=== PATIENT | female | born 1930 | race Caucasian/White ===

== ENCOUNTER 2020-12-19 10:31 | Day surgery (SDC) | payer MEDICARE, OTHER ==
[~2020-12-19 10:31] MED LIST: Lactated Ringers 1,000 ML IV SCH; Propofol 200 MG/20 ML SDV ONE; Sodium Chloride 0.9% 10 ML Syringe FLUSH PRN
--- NOTE | 2020-12-19 12:08 | PCM.PN ---
- General Info Date of Service: 12/19/20 - Review of Systems Systems Review Comment:: 89-year-old female referred for EGD. She has been having some symptoms of dysphagia and chest discomfort. She does take a PPI agent regularly. She is medically stable to proceed today. Her recent history and physical is reviewed and no significant changes are noted. I have discussed the proposed EGD with the patient. She agrees to proceed accepting risks. - Patient Data Vitals - Most Recent: Last Vital Signs Temp 97.9 F 12/19/20 11:30 Pulse 55 L 12/19/20 11:30 Resp 18 12/19/20 11:30 BP 162/81 H 12/19/20 11:30 Pulse Ox 98 12/19/20 11:30 Weight - Most Recent: 51.71 kg Med Orders - Current: Current Medications Lactated Ringer's (Ringers, Lactated) 1,000 mls @ 125 mls/hr IV ASDIRECTED ALONA Last Admin: 12/19/20 11:30 Dose: 125 mls/hr Documented by: Sodium Chloride (Sodium Chloride 0.9% 10 Ml Syringe) 10 ml FLUSH ASDIRECTED PRN PRN Reason: Keep Vein Open Discontinued Medications Propofol (Propofol 200 Mg/20 Ml Sdv) Confirm Administered Dose 200 mg .ROUTE .STK-MED ONE Stop: 12/19/20 08:24 Sepsis Event Note - Focused Exam Vital Signs: Vital Signs Temp Pulse Resp BP Pulse Ox 12/19/20 11:30 97.9 F 55 L 18 162/81 H 98 - Problem List Review Problem List Initiated/Reviewed/Updated: Yes - Assessment Assessment:: Dysphagia - Plan Plan:: EGD
[2020-12-19] MEDS ORDERED: Propofol 200 MG/20 ML SDV ONE (12:15)
--- NOTE | 2020-12-19 12:51 | PCM.OPNOTE ---
- General Post-Op/Procedure Note Date of Surgery/Procedure: 12/19/20 Operative Procedure(s): EGD with Balloon Dilation of Esophagus and Biopsy Findings: Distal Esophageal Stricture small hiatal hernia Pre Op Diagnosis: Dysphagia Post-Op Diagnosis: Esophageal stricture. Hiatal Hernia Anesthesia Technique: MAC Primary Surgeon: Tl Mckinnon Pathology: Biopsies of Gastric Antrum and GE Jct EBL in mLs: 3 Complications: None Condition: Good
--- NOTE | 2020-12-19 13:42 | OR ---
Date of Procedure: 12/19/2020 PREOPERATIVE DIAGNOSIS: Dysphagia. POSTOPERATIVE DIAGNOSES: Distal esophageal stricture and hiatal hernia. OPERATION PERFORMED: Esophagogastroduodenoscopy with biopsy and esophageal balloon dilation. INDICATIONS FOR SURGERY: This 89-year-old female has been noticing some difficulty with swallowing as well as chest discomfort. She was referred for EGD. FINDINGS: The patient has a small hiatal hernia, and right at the GE junction approximately 36 cm from the incisors, there is a single moderate stricture. No evidence of intrinsic or extrinsic mass is noted. The stricture is very limited to just the GE junction. The remainder of the esophagus, stomach, and duodenum appeared normal. DESCRIPTION OF PROCEDURE: The patient was taken to the operating room. She was given intravenous sedation, and with her in the left lateral decubitus position, the Olympus gastroscope was advanced through a mouth guard into the oral cavity. Under direct visualization, the scope was advanced down through the hypopharynx into the esophagus and then down through the esophagus past the stricture which was able to be cannulated before dilation and then passed through the stomach and into the duodenum, where examination to the third portion was performed. The duodenum was carefully examined, and then, scope was withdrawn back into the stomach where full examination including retroflexed examination of the fundus was performed. Because of the patient's symptoms and the presence of a stricture, balloon dilation of the distal esophageal stricture was then performed. This was carried out using an 18 mm balloon progressing to 54-Bengali dilation. No evidence of complication was noted with this procedure. Random biopsies were also taken of the antrum as well as the GE junction during the procedure. After the stomach had been thoroughly examined and biopsy and dilation had been completed, the scope was then withdrawn re-examining the esophagus and the scope was then removed. The patient was then awakened and taken from the operating room in satisfactory condition. ESTIMATED BLOOD LOSS: 3 mL. COMPLICATIONS: None. PROGNOSIS: Good. OBINNA Mckinnon MD /[id number]
== END 2020-12-19 13:57 | disposition home or self-care (01) ==
LOC: LL.SDS 10:31
PROVIDERS: ATTEND Surgery
DX: K22.2 Esophageal obstruction (principal); K29.50 Unspecified chronic gastritis without bleeding; K31.89 Other diseases of stomach and duodenum; K20.0 Eosinophilic esophagitis; K44.9 Diaphragmatic hernia without obstruction or gangrene; M81.0 Age-related osteoporosis without current pathological fracture; K21.9 Gastro-esophageal reflux disease without esophagitis; G62.9 Polyneuropathy, unspecified; C64.1 Malignant neoplasm of right kidney, except renal pelvis; Z88.8 Allergy status to other drugs, medicaments and biological substances; Z79.899 Other long term (current) drug therapy; Z90.49 Acquired absence of other specified parts of digestive tract; Z98.890 Other specified postprocedural states; Z20.828 Contact with and (suspected) exposure to other viral communicable diseases
CPT/HCPCS: 00731; 88305; 88342; C1726; J2704; J7120; U0002